=== PATIENT | female | born 1980 | race Caucasian/White ===

== ENCOUNTER 2018-01-29 14:04 | Outpatient (CLI) | payer OTHER ==
[~2018-01-29 14:04] MED LIST: BONIVA150 MG; CALTRATE 600 W-1 TAB PO; MENEST0.625 MG PO; PROVERA PO; PROVERA2.5 MG PO; VYTORIN 10-20 M1 TAB PO; VYTORIN 10/20 T1 TAB PO; [UNRECOGNIZED DRUG - OTHER]
== END 2018-01-29 14:11 | disposition home or self-care (01) ==
LOC: SONOGRAMA 14:04
DX: N93.8 Other specified abnormal uterine and vaginal bleeding (principal); R10.2 Pelvic and perineal pain

== ENCOUNTER 2020-04-21 09:56 | Outpatient (CLI) | payer OTHER | END 2020-04-21 10:02 | disposition home or self-care (01) | LOC: SONOGRAMA 09:56 | DX: Z12.39 Encounter for other screening for malignant neoplasm of breast (principal) ==

== ENCOUNTER → 2020-10-12 | Outpatient (CLI) | payer OTHER | END | disposition home or self-care (01) | LOC: MAMO-SONO 10:15 → SONOGRAMA 10:54 | PROVIDERS: ATTEND Obstetrics & Gynecology | DX: N60.11 Diffuse cystic mastopathy of right breast (principal); N60.12 Diffuse cystic mastopathy of left breast; N64.59 Other signs and symptoms in breast ==

== ENCOUNTER 2020-11-28 11:11 | Outpatient (CLI) | payer OTHER | END 2020-11-28 11:23 | disposition home or self-care (01) | LOC: SONOGRAMA 11:11 → MAMO-SONO 13:15 | PROVIDERS: ATTEND Obstetrics & Gynecology | DX: N83.292 Other ovarian cyst, left side (principal); N83.291 Other ovarian cyst, right side; N95.0 Postmenopausal bleeding ==

== ENCOUNTER 2021-02-22 11:05 | Day surgery (SDC) | payer OTHER ==
[~2021-02-22 11:05] MED LIST changes: +FOLIC ACID0.8 M1 PO; +Q-SORB CO Q-10100 MG PO; +SPIRIVA RESPIMAT4 G1 IH; +VITAMIN C500 M6 PO; +ZETIA10 MG PO
== END 2021-02-22 19:00 | disposition home or self-care (01) ==
LOC: CIR.AMB 11:05
PROVIDERS: ATTEND Obstetrics & Gynecology
DX: C54.1 Malignant neoplasm of endometrium (principal); N84.0 Polyp of corpus uteri; Z20.822 Contact with and (suspected) exposure to COVID-19

== ENCOUNTER 2021-03-28 13:42 | Emergency (ER) | payer OTHER ==
[~2021-03-28] VITALS: Ht 147.3 cm; Wt 69.9 kg
== END 2021-03-28 22:40 | disposition home or self-care (01) ==
LOC: ER 13:42
DX: N93.8 Other specified abnormal uterine and vaginal bleeding (principal)

== ENCOUNTER 2021-05-08 09:00 | Inpatient (IN) | payer OTHER ==
[~2021-05-08] VITALS: Ht 149.9 cm; Wt 70.3 kg
[2021-05-08] MEDS ORDERED: FOLIC A PO ×2 (11:04→11:05)
[2021-05-08] MEDS ORDERED: VITAMIN D3 PO (11:05)
[2021-05-08] MEDS ORDERED: VITAMIN C100 MG PO (11:06)
[2021-05-08] MEDS ORDERED: VITAMIN E400 UNI5 PO (11:07)
[2021-05-08] MEDS ORDERED: SPIRIVA RESPIMAT4 G1 IH (14:30)
[2021-05-16] MEDS ORDERED: FOLIC ACID1 MG PO (09:13)
[2021-05-16] MEDS ORDERED: LOW-OGESTREL-21 EACH (09:13)
[2021-05-16] MEDS ORDERED: VITAMIN D310 MC4 (09:14)
== END 2021-05-18 10:24 | disposition home or self-care (01) | DRG 743 ==
LOC: SURH 05-15 08:30 → O/R 05-15 11:03 → OB/GYN 05-15 18:24
PROVIDERS: ADMIT Obstetrics & Gynecology; ATTEND Obstetrics & Gynecology
PROC: 0UT70ZZ Resection of Bilateral Fallopian Tubes, Open Approach (ICD-10-PCS; 2021-05-15)
PROC: 0UT90ZZ Resection of Uterus, Open Approach (ICD-10-PCS; principal; 2021-05-15 08:30)
DX: N72 Inflammatory disease of cervix uteri (principal); D25.1 Intramural leiomyoma of uterus; N84.0 Polyp of corpus uteri